=== PATIENT | male | born 1970 | race Caucasian/White ===

== ENCOUNTER → 2024-08-31 08:10 | Outpatient (CLI) | payer OTHER, SELFPAY ==
--- NOTE | 2024-08-31 08:50 | EKG_ITS ---
[address] [address] Test Date: 2024-08-31 Pat Name: Marshall Styles Department: [facility] Room: Gender: Male Director Of Sports Medicine: HELGA : 1970 Requested By: Order Number: [id number] Reading MD: Julio Cesar Rousseau Measurements Intervals [place] Rate: 45 P: 60 [place]: 182 QRS: 3 QRSD: 106 T: 40 QT: 442 QTc: 382 Interpretive Statements Sinus bradycardia Possible Left atrial enlargement Incomplete right bundle branch block Electronically Signed On 09-02-2024 15:51:00 PDT by Julio Cesar Rousseau
[2024-08-31 08:52] LABS: Add Manual Diff / Slide Review NO; Basophils Absolute Auto 100 /uL (0-100); Basophils Percent Auto 1.1 % (0-2); Eosinophils Absolute Auto 200 /uL (0-450); Eosinophils Percent Auto 2.3 % (2-4); Hematocrit 45.1 % (41-53); Hemoglobin 15.6 g/dL (13.5-17.5); Lymphocytes Absolute Auto 1400 /uL (1100-4500); Lymphocytes Percent Auto 21.8 % (25-40); Mean Corpuscular HGB Conc 34.7 % (30-36); Mean Corpuscular Hemoglobin 32.7 PG (26-34); Mean Corpuscular Volume 94.3 fL (80-100); Monocytes Absolute Auto 500 /uL (0-900); Neutrophils Absolute Auto 4400 /uL (1500-7000); Neutrophils Percent Auto 66.8 % (50-75); Platelet Count 286 X10^3/uL (150-400); Red Blood Cell Count 4.78 X10^6/uL (4.5-5.9); Red Cell Distribution Width 13.1 % (11.6-14.8); White Blood Cell Count 6.6 X10^3/uL (4.5-11.0)
[2024-08-31 09:06] LABS: Hemoglobin A1C% w Est Avg Glu 5.2 % (4.0-6.0)
[2024-08-31 09:50] LABS: Alanine Aminotransferase 32 IU/L (<50); Albumin 4.2 g/dL (3.5-5.0); Albumin Globulin Ratio 1.8 (1.0-2.8); Alkaline Phosphatase 55 U/L (38-126); Aspartate Aminotransferase 25 IU/L (17-59); Bilirubin Total 0.9 mg/dL (0.2-1.3); Blood Urea Nitrogen 17 mg/dL (9-20); Calcium 9.3 mg/dL (8.4-10.2); Carbon Dioxide 27 mmol/L (22-32); Chloride 104 mmol/L (98-107); Cholesterol 207 mg/dL (140-199); Estimated Glomerular Filt Rate > 60 mL/min (>60); Globulin 2.3 g/dL (1.7-4.1); Glucose 103 mg/dL (70-100); HDL Cholesterol 52 mg/dL (40-60); HEMOLYSIS < 15 (0-50); LDL Cholesterol Calculated 125 mg/dL (<100); Potassium 4.3 mmol/L (3.4-5.1); Sodium 138 mmol/L (137-145); Total Protein 6.5 g/dL (6.3-8.2); Triglycerides 152 mg/dL (35-150)
[2024-08-31 10:49] LABS: Prostate Specific Antigen Scrn < 0.064 ng/mL (0.1-4.0)
[2024-09-02 17:01] LABS: HIV 1 & 2 Ab/Ag 4th Gen Combo NEGATIVE (NEGATIVE); Hep C Virus Ab w/Reflex Quant NEGATIVE s/c (NEGATIVE)
== END ==
PROVIDERS: PCP Family Medicine; Referring Provider Family Medicine; Visit Provider Family Medicine
DX: Z13.228 Encounter for screening for other metabolic disorders (principal); Z11.4 Encounter for screening for human immunodeficiency virus [HIV]; Z13.0 Encounter for screening for diseases of the blood and blood-forming organs and certain disorders involving the immune mechanism; Z11.59 Encounter for screening for other viral diseases; Z13.220 Encounter for screening for lipoid disorders; Z13.1 Encounter for screening for diabetes mellitus; Z12.5 Encounter for screening for malignant neoplasm of prostate; Z85.46 Personal history of malignant neoplasm of prostate
CPT/HCPCS: 36415; 80053; 80061; 83036; 85025; 86803; 87389; 93005; G0103

== ENCOUNTER → 2024-09-29 07:50 | Outpatient (CLI) | payer OTHER, SELFPAY ==
--- NOTE | 2024-09-29 07:51 | DI.ECHO.S_ITS ---
[facility] : : [address] : : [place] : : [id number] : : Phone: [phone] Echocardiogram Report + + :Name: MILAD, NICHOLE Boo Study Date: 09/29/2024 Height: 71 in : :[facility] ReadingLocation: Weight: 185 lb : : Gender: Male BSA: 2.0 m2 : :: 1970 Age: 54 yrs BP: 131/87 mmHg: :Reason For Study: SYNCOPE, LBBB ON EKG : :Ordering Physician: DANIAL, : :CAMRON Boo Performed By: Camron Regan : :Referring: CAMRON BARROW : + + Interpretation Summary The left ventricle is normal in size. Left ventricular systolic function appears normal without focal wall motion abnormalities. The ejection fraction is estimated to be 55-60%. The right ventricle is mildly dilated. The right ventricular systolic function is normal. The left atrial size is normal. There is no significant valvular heart disease. The aortic root is borderline dilated. The ascending aorta is mildly enlarged. Procedure: A two-dimensional transthoracic echocardiogram with color flow and Doppler was performed. The study quality was technically good. There is no prior echocardiogram noted for this patient. The patient was in normal sinus rhythm during the exam. Left Ventricle: The left ventricle is normal in size. There is normal left ventricular wall thickness. There is no ventricular septal defect visualized. Left ventricular systolic function appears normal without focal wall motion abnormalities. The ejection fraction is estimated to be 55-60%. Diastolic parameters suggest probable normal left ventricular diastolic function and normal filling pressures. Right Ventricle: The right ventricle is mildly dilated. The right ventricular systolic function is normal. Atria: The left atrial size is normal. The right atrium is mildly dilated. There is no Doppler evidence for an atrial septal defect. Mitral Valve: The mitral valve is normal in structure and function. There is trace mitral regurgitation. Aortic Valve: The aortic valve is trileaflet. The aortic valve opens well. No aortic regurgitation is present. Tricuspid Valve: The tricuspid valve is normal in structure and function. No tricuspid regurgitation. Pulmonic Valve: The pulmonic valve is normal in structure and function. There is no pulmonic valvular regurgitation. There is no significant valvular heart disease. Great Vessels: The aortic root is borderline dilated. The ascending aorta is mildly enlarged. The pulmonary artery is normal size. The IVC is of normal diameter and collapses greater than 50% with a sniff. This suggests a low right atrial pressure of 3 mm Hg. Pericardium/ Pleura There is no pericardial effusion. There is no pleural effusion. MMode/2D Measurements & Calculations LVIDd: 4.9 cm LVOT diam: 2.4 cm LVIDs: 2.9 cm Ao root diam: 3.6 cm FS: 41.1 % asc Aorta Diam: 4.0 cm EPSS: 0.35 cm Ao Arch Diam (Prox Trans): 2.1 cm IVSd: 0.93 cm LVPWd: 0.87 cm LV beatty. diameter/BSA (cm/m^2): 2.4 LV sys. diameter/BSA (cm/m^2): 1.4 LA A2 area: 18.3 cm2 RA long axis: 5.5 cm LA A4 area: 18.5 cm2 RA area: 19.2 cm2 LA length (vol): 5.4 cm RA vol: 56.6 ml LA vol: 52.9 ml RA : 27.7 ml/m2 LA vol index: 25.9 ml/m2 IVC diam: 2.0 cm RVD1 (basal): 4.2 cm RVD2 (mid): 3.7 cm TAPSE: 2.3 cm Doppler Measurements & Calculations Ao V2 max: 133.9 cm/sec LVOT Max Alejandro: 118.1 cm/sec Ao V2 mean: 83.4 cm/sec LV V1 max P.6 mmHg Ao max P.2 mmHg LV V1 VTI: 23.9 cm Ao mean P.3 mmHg CORAL(I,D): 4.0 cm2 Ao V2 VTI: 26.7 cm CORAL(V,D): 3.9 cm2 sev ratio: 0.90 CORAL indexed to BSA (cm^2/m^2): 2.0 MV E max alejandro: 64.1 cm/sec PA V2 max: 94.5 cm/sec MV A max alejandro: 40.8 cm/sec PA V2 mean: 64.0 cm/sec MV E/A: 1.6 PA mean P.8 mmHg Med Peak E' Alejandro: 8.3 cm/sec PA pr(Accel): 32.8 mmHg E/E' med: 7.8 Lat Peak E' Alejandro: 11.3 cm/sec E/E' lat: 5.7 E/e' average: 6.7 MV dec time: 0.21 sec SV(LVOT): 106.5 ml Reading Physician:09:33 AM
== END ==
PROVIDERS: PCP Family Medicine; Referring Provider Family Medicine; Visit Provider Family Medicine
DX: I77.89 Other specified disorders of arteries and arterioles (principal); I44.7 Left bundle-branch block, unspecified; Z87.898 Personal history of other specified conditions
CPT/HCPCS: 93306

== ENCOUNTER 2024-11-15 07:10 | Day surgery (SDC) | payer OTHER, SELFPAY ==
[2024-11-15 07:24] VITALS: BP 131/77; PULSE 70; RESP 17; TEMP 36.2; O2SAT 96
[2024-11-15] MEDS: SODIUM CHLORIDE 0.9% 1,000 ML 42 ML IV (07:53)
--- NOTE | 2024-11-15 08:30 | P.OP.COLON_ITS ---
Operative Date/Time/Diagnoses Date of procedure: 11/15/24 Time of procedure: 09:02 Procedure & Clinicians Surgeon: Radu Anglin Procedure Notes Procedure in detail: OPERATIVE / PROCEDURE NOTE Marshall Styles, 1970, 54,Male,CSN: [id number] 11/15/24 PREOPERATIVE DIAGNOSIS: Need for screening colonoscopy.. POSTOPERATIVE DIAGNOSIS: Same + Per the colonoscopy to the cecum: NORMAL COLON, f/u colonoscopy in 10 years. PROCEDURE DONE: Colonoscopy to the cecum. ANESTHESIA: MAC per Anesthesia. COMPLICATIONS: None. SPECIMENS: None. ESTIMATED BLOOD LOSS: NONE. CONDITION: Stable to the PACU. OPERATIVE DESCRIPTION: After proper informed consent was signed by the patient knowing all the risks, benefits, and potential complications and possible alternatives of the procedure, the patient was appropriately identified. Marshall Styles underwent a bowel prep that was very efficient yesterday, and the colon was clean. After institution of sedation on his left lateral decubitus position, a rectal exam was performed. Normal rectal and anal tone was found. The Olympus colonoscope was placed into his anus and under direct visualization was advanced from the rectum to the rectosigmoid to the sigmoid to the left colon, splenic flexure, transverse colon, hepatic flexure, ascending colon, and all the way to the cecum. Circumferential visualization of the mucosa was possible. The appendix aperture was noted. The ileocecal valve was noted. No large tumors. No ulcers. No inflammatory bowel disease changes were noted. No diverticulae noted in the sigmoid colon. In the rectum, the scope was retroflexed, and no internal hemorrhoids were noted. NORMAL COLON, f/u colonoscopy in 10 years. The scope was straightened back again. The colon was decompressed, and the scope was retracted out uneventfully. The patient tolerated the procedure well without any complications, was sent to the PACU in stable condition. RECOMMENDATIONS: Continue high-fiber diet - 30-40 gm/day with daily fiber supplementation. NORMAL COLON, f/u colonoscopy in 10 years.
--- NOTE | 2024-11-15 08:30 | P.HP_ITS ---
History of Present Illness History of Present Illness Date Patient Seen: 11/15/24 Time Patient Seen: 08:34 Chief complaint: [facility] Medical History (Updated 11/15/24 @ 08:36 by Radu Anglin MD) History of prostate cancer Surgical History (Updated 11/17/23 @ 13:32 by Camron Guerra MD) H/O prostatectomy (~2017) H/O vasectomy (~2009) H/O left inguinal hernia repair (~2011) Family History (Updated 11/17/23 @ 13:59 by Camron Guerra MD) Father Cancer Mother Alzheimer's dementia Social History marital status: household members: spouse education level: college occupational status: employed Smoking Status: Never smoker alcohol intake: current substance use type: does not use during the past year weight has: remained stable well-balanced diet: daily or most days daily servings fruits/ve or more times/day eating out: rarely or never Type(s) of exercise: walking, bicycling and additional (hiking) frequency: 3-4 times per week duration: 15-30 minutes/day Meds Home Medications and Allergies Home Medications Medication Instructions Recorded Confirmed Type albuterol sulfate 90 mcg/actuation 2 puff inhalation Q4-6H PRN 11/17/23 11/15/24 History aerosol inhaler Allergic Symptoms cetirizine 10 mg capsule (Zyrtec) 10 mg PO DAILY allergies 11/17/23 11/15/24 History fluticasone 100 mcg-salmeterol 50 1 ea PO BID #60 ea 08/12/24 11/15/24 Rx mcg/dose blistr powdr for inhalation (Wixela Inhub) meloxicam 7.5 mg tablet 7.5 mg PO DAILY PRN for joint pain 09/24/24 11/15/24 Rx #60 tabs Allergies Allergy/AdvReac Type Severity Reaction Status Date / Time No Known Drug Allergies Allergy Verified 11/15/24 07:22 Review of Systems Review of Systems ROS: Yes All systems reviewed with the patient and are negative except as otherwise documented Exam Vital Signs (past 8 hours): - 11/15/24 07:24 Temperature 97.1 F L Pulse Rate 70 Respiratory Rate 17 Blood Pressure 131/77 Pulse Oximetry 96 Oxygen Delivery Method Room Air Oxygen Delivery Method Room Air Narrative Exam Narrative: Normal abdominal exam. Assessment & Plan Assessment and plan (1) Encounter for screening colonoscopy: Problem details: No high risk for colon cancer, NO symptoms at all, did a good bowel prep yesterday, and will colonoscope him NOW. Status: Acute Time-Based Coding :: [TOTAL MINUTES] spent with patient and on the chart (including review of chart, obtaining history, exam, reviewing outside data, placing orders, documenting exam and treatment plan, and counseling patient) on [DATE].
[2024-11-15 09:06] VITALS: BP 119/74; PULSE 77; RESP 16; O2SAT 95
[2024-11-15 09:17] VITALS: BP 106/61; PULSE 61; RESP 12; TEMP 36.4; O2SAT 95
[2024-11-15 09:21] VITALS: BP 104/62; PULSE 57; RESP 10; O2SAT 97
[2024-11-15 09:25] VITALS: BP 132/89; PULSE 73; RESP 21; TEMP 36.7; O2SAT 97
== END 2024-11-15 09:41 | disposition home or self-care (01) ==
PROVIDERS: PCP Family Medicine; Referring Provider Surgery; Visit Provider Surgery
PROC: 0DJD8ZZ Inspection of Lower Intestinal Tract, Via Natural or Artificial Opening Endoscopic (ICD-10-PCS; CPT 45378; principal; 2024-11-15 08:15)
DX: Z12.11 Encounter for screening for malignant neoplasm of colon (principal)
CPT/HCPCS: 45378; J2704

== ENCOUNTER 2025-11-06 10:35 | Emergency (ER) | payer OTHER, SELFPAY ==
[2025-11-06] VITALS (13 sets, daily range): BP systolic 109–155; BP diastolic 68–85; PULSE 53–74; RESP 16; TEMP 36.8; O2SAT 93–97; BMI 25.7
--- NOTE | 2025-11-06 10:59 | ED.GENADULT ---
HPI - General Adult General Chief complaint: Urogenital-Male Stated complaint: Urinating blood. Time Seen by Provider: 11/06/25 10:40 History of Present Illness HPI narrative: 55-year-old gentleman with a history of prostate cancer in 2018 post prostatectomy we will follow up PSAs have been low presents with 3 days of intermittent gross hematuria. He had right flank pain with hematuria 3 nights ago, no dysuria no frequency another episode of hematuria and this morning had very dark grossly bloody stool again. He is not having difficulty with voiding and feels that he is completely emptying his bladder. No fevers, chills aside from the episode of flank pain initially this has not recurred. He is not currently in pain Related Data Home Medications ?Medication ?Instructions ?Recorded ?Confirmed albuterol sulfate 90 mcg/actuation 2 puff inhalation Q4-6H PRN 11/17/23 08/01/25 aerosol inhaler Allergic Symptoms cetirizine 10 mg capsule (Zyrtec) 10 mg PO DAILY allergies 11/17/23 08/01/25 Previous Rx's ?Medication ?Instructions ?Recorded meloxicam 7.5 mg tablet 7.5 mg PO DAILY PRN for joint pain 08/01/25 #60 tabs fluticasone 100 mcg-salmeterol 50 1 ea PO BID #60 ea 09/03/25 mcg/dose blistr powdr for inhalation (Wixela Inhub) Allergies Allergy/AdvReac Type Severity Reaction Status Date / Time No Known Drug Allergies Allergy Verified 08/01/25 08:54 Review of Systems Review of Systems Narrative: Pertinent positive and negative findings as per HPI Patient History Medical History History of prostate cancer Surgical History H/O prostatectomy (~2017) H/O vasectomy (~2009) H/O left inguinal hernia repair (~2011) Family History Father Cancer Mother Alzheimer's dementia Social History marital status: household members: spouse education level: college occupational status: employed alcohol intake: current substance use type: does not use during the past year weight has: remained stable well-balanced diet: daily or most days daily servings fruits/ve or more times/day eating out: rarely or never Type(s) of exercise: walking, bicycling and additional (hiking) frequency: 3-4 times per week duration: 15-30 minutes/day Exam Initial Vital Signs Initial Vital Signs: Vital Signs Temperature 98.3 F 11/06/25 10:50 Pulse Rate 74 11/06/25 10:50 Respiratory Rate 16 11/06/25 10:50 Blood Pressure 155/83 H 11/06/25 10:50 Pulse Oximetry 97 11/06/25 10:50 Oxygen Delivery Method Room Air 11/06/25 10:50 General: Alert appropriate in no acute distress Respiratory: Able to speak in full sentences, no obvious respiratory distress Abdomen: Nontender, no flank pain Skin: No obvious rashes, warm and dry Neurologic: Grossly intact no obvious asymmetries or abnormalities Psych: appropriate insight and affect, cooperative Course Orders Ordered: ED Orders 11/06/25 10:59 CT abdomen pelvis w con Stat 11/06/25 11:00 Urinalysis and Microscopic Stat 11/06/25 11:05 Complete Blood Count AUTO DIFF Stat Comprehensive Metabolic Panel Stat Vital Signs Vital signs: Vital Signs - 8 hr 11/06/25 10:50 11/06/25 11:08 11/06/25 11:11 Temperature 98.3 F Pulse Rate 74 64 Respiratory Rate 16 Blood Pressure 155/83 H 120/71 Pulse Oximetry 97 96 Oxygen Delivery Method Room Air 11/06/25 11:11 11/06/25 11:30 11/06/25 11:30 Temperature Pulse Rate 62 64 Respiratory Rate Blood Pressure 109/68 Pulse Oximetry 93 94 Oxygen Delivery Method 11/06/25 12:02 11/06/25 12:30 11/06/25 12:38 Temperature Pulse Rate 62 56 L 63 Respiratory Rate Blood Pressure Pulse Oximetry 94 94 96 Oxygen Delivery Method 11/06/25 12:38 11/06/25 13:00 11/06/25 13:00 Temperature Pulse Rate 56 L Respiratory Rate Blood Pressure 122/79 112/68 Pulse Oximetry 95 Oxygen Delivery Method 11/06/25 13:30 11/06/25 13:30 11/06/25 14:00 Temperature Pulse Rate 59 L Respiratory Rate Blood Pressure 112/71 117/76 Pulse Oximetry 95 Oxygen Delivery Method 11/06/25 14:00 11/06/25 14:30 11/06/25 14:30 Temperature Pulse Rate 57 L 53 L Respiratory Rate Blood Pressure 132/76 Pulse Oximetry 96 97 Oxygen Delivery Method 11/06/25 15:00 11/06/25 15:00 11/06/25 15:30 Temperature Pulse Rate 72 69 Respiratory Rate Blood Pressure 132/81 Pulse Oximetry 95 96 Oxygen Delivery Method 11/06/25 15:30 Temperature Pulse Rate Respiratory Rate Blood Pressure 131/85 Pulse Oximetry Oxygen Delivery Method Medical Decision Making Lab Data 11/06/25 11:05 11/06/25 11:05 Labs: Lab Results 11/06/25 11/06/25 Range/Units 11:00 11:05 WBC 6.0 (4.5-11.0) X10^3/uL RBC 4.83 (4.5-5.9) X10^6/uL Hgb 15.7 (13.5-17.5) g/dL Hct 45.3 (41-53) % MCV 93.8 (80-100) fL MCH 32.6 (26-34) PG MCHC 34.7 (30-36) % RDW 12.6 (11.6-14.8) % Plt Count 270 (150-400) X10^3/uL Neut % (Auto) 66.9 (50-75) % Lymph % (Auto) 19.0 L (25-40) % [place] % (Auto) 8.8 (3-14) % Eos % (Auto) 2.3 (2-4) % Baso % (Auto) 3.0 H (0-2) % Neut # (Auto) 4000 (4885-6185) /uL Lymph # (Auto) 1100 (6240-4081) /uL [place] # (Auto) 500 (0-900) /uL Eos # (Auto) 100 (0-450) /uL Baso # (Auto) 200 H (0-100) /uL Sodium 137 (137-145) mmol/L Potassium 4.2 (3.4-5.1) mmol/L Chloride 107 (98-107) mmol/L Carbon Dioxide 24 (22-32) mmol/L BUN 17 (9-20) mg/dL Creatinine 1.06 (0.66-1.25) mg/dL Estimated GFR > 60 (>60) mL/min BUN/Creatinine Ratio 16.0 (6-22) Glucose 125 H (70-99) mg/dL Calcium 9.1 (8.4-10.2) mg/dL Total Bilirubin 0.9 (0.2-1.3) mg/dL AST 27 (17-59) IU/L ALT 32 (<50) IU/L Alkaline Phosphatase 51 (38-126) U/L Total Protein 7.1 (6.3-8.2) g/dL Albumin 4.5 (3.5-5.0) g/dL Globulin 2.6 (1.7-4.1) g/dL Albumin/Globulin Ratio 1.7 (1.0-2.8) Urine Color Yellow Urine Appearance Clear Urine pH 6.0 (4.5-8.0) Ur Specific [place] <=1.005 (1.000-1.035) Urine Protein Negative (Negative) Urine Glucose (UA) Negative (Negative) g/dL Urine Ketones Negative (NEGATIVE) Urine Occult Blood Negative (Negative) Urine Nitrate Negative (Negative) Urine Bilirubin Negative (NEGATIVE) Urine Urobilinogen 0.2 (0.2) E.U./dL Ur Leukocyte Esterase Negative (NEGATIVE) Urine RBC None seen (0-5/HPF) Urine WBC 1-5/hpf (0-5/HPF) Ur Squamous Epith Cells None seen (0-5/HPF) Urine Bacteria None seen (None) Ur Culture Indicated? Cult not indicated Vol Urine Centrifuged 10ml (spun) Urine Dip Bedside Urine Glucose Negative Bedside Urine Bilirubin - Negative Bedside Urine Ketone - Negative Urine Specific [place] 1.005 Bedside Urine Occult Blood - Negative Bedside Urine pH 6.0 Bedside Urine Protein - Negative Bedside Urine Urobilinogen - Negative Bedside Urine Nitrite - Negative Bedside Urine Leukocytes - Negative Esterase Point of care testing: Urine Dip Bedside Urine Glucose Negative Bedside Urine Bilirubin - Negative Bedside Urine Ketone - Negative Urine Specific [place] 1.005 Bedside Urine Occult Blood - Negative Bedside Urine pH 6.0 Bedside Urine Protein - Negative Bedside Urine Urobilinogen - Negative Bedside Urine Nitrite - Negative Bedside Urine Leukocytes - Negative Esterase Imaging Data CT scan - abdomen/pelvis: Radiologist's Impression: PROCEDURE: CT ABDOMEN PELVIS W CON INDICATIONS: gross hematuria, flank pain TECHNIQUE: After the administration of intravenous contrast, axial sections acquired from the lung bases to the pubic symphysis. Coronal and sagittal reformats were performed. For radiation dose reduction, the following was used: automated exposure control, adjustment of mA and/or kV according to patient size. COMPARISON: None. FINDINGS: Image quality: Diagnostic. Lower Chest: No significant findings. ABDOMEN: Liver: No solid mass. Gallbladder: No radiopaque gallstones or wall thickening. Biliary ducts: No biliary dilation. Pancreas: No ductal dilation. Spleen: Size is within normal limits. Adrenal Glands: No adrenal nodules. Kidneys and Ureters: There is a heterogeneous enhancing mass in the right kidney measuring 4.0 x 4.1 x 5.0 cm (2/63, 4/54). No significant hydronephrosis Stomach and Bowel: Normal colonic caliber, without significant wall thickening. Peritoneum: No abnormal intraperitoneal fluid. No free air. Ventral Wall: No significant ventral hernia. Abdominal Nodes: No retroperitoneal or mesenteric adenopathy by size criteria. Vessels: Aorta and inferior vena cava are normal in size. PELVIS: Pelvic Organs: Unremarkable. Bladder: No bladder wall thickening, accounting for underdistention. Pelvic Nodes: No enlarged lymph nodes. Miscellaneous: No inguinal hernias are seen. Bones: No aggressive osseous abnormality. IMPRESSION: Heterogeneous lead enhancing right 5 cm mass concerning for renal cell carcinoma. No abdominal adenopathy. Recommend urology consultation. Approved by: Kasia Flores M.D.,Ph.D. on 11/06/2025 at 13:32 MDM Narrative Medical decision making narrative: CC: Intermittent hematuria and flank pain for 3 days Complicating co-morbidities: Prostate cancer 2018 Data collected from: patient, Differential considered: Kidney stone, bladder infection, bladder cancer, renal cancer recurrent prostate cancer Exam documented above, pertinent findings include: No abdominal pain or flank pain at this time Lab Test results independently reviewed as above. Pertinent findings: CBC is reassuring Chemistries are reassuring including normal renal function Imaging studies independently reviewed: right 5 cm mass concerning for renal cell carcinoma. No abdominal adenopathy. Discussion: The right 5 cm renal mass with concerns for renal cancer as a source for his intermittent episodes of painless acute hematuria are discussed with the patient. Explained the need for rapid urologic follow up. There was no evidence of urine or kidney infection, recurrent prostate abnormalities or alternate explanations. Patient expresses understanding understands need for outpatient follow up for further biopsy, diagnosis and treatment. He is safe for discharge Discharge Plan Departure Patient Disposition: Home Clinical Impression: Mass of right kidney, Gross hematuria Instructions: DI for Kidney Cancer Activity Restrictions/Additional Instructions: Thank you for coming in today There was no evidence of bladder infection, kidney stone or kidney infection. Your CT scan shows a 5 cm mass on your right kidney that is concerning for a kidney cancer. You need to get into see a urologist quickly to help with definitive diagnosis and treatment. Please contact [facility], Dr. Orellana, If you have any difficulty getting into see Dr Orellana, please contact your primary care provider. If you find that you are getting worse or develop any new symptoms, please feel free to return to the emergency department for further evaluation. Prescriptions: No Action Zyrtec 10 mg capsule 10 mg PO DAILY albuterol sulfate 90 mcg/actuation HFA aerosol inhaler 2 puff inhalation Q4-6H PRN (Reason: Allergic Symptoms) meloxicam 7.5 mg tablet 7.5 mg PO DAILY PRN (Reason: for joint pain) Qty: 60 2RF fluticasone propion-salmeterol [Wixela Inhub] 100-50 mcg/dose blister with device 1 ea PO BID Qty: 60 5RF Referrals: Camron Guerra MD [Primary Care Provider, Family Practice] Stand Alone Forms: Patient Portal/API
[2025-11-06 11:23] LABS: Appearance Urine UA CLEAR; Bilirubin Urine UA NEGATIVE (NEGATIVE); Color Urine UA YELLOW; Glucose Urine UA NEGATIVE (Negative); Ketones Urine UA NEGATIVE (NEGATIVE); Leukocyte Esterase Urine UA NEGATIVE (NEGATIVE); Nitrite Urine UA NEGATIVE (Negative); Occult Blood Urine UA NEGATIVE (Negative); Protein Urine UA NEGATIVE (Negative); Specific Gravity Urine UA <=1.005 (1.000-1.035); Urobilinogen Urine UA 0.2 E.U./dL (0.2); pH Urine UA 6.0 (4.5-8.0)
[2025-11-06 11:35] LABS: Alanine Aminotransferase 32 IU/L (<50); Albumin 4.5 g/dL (3.5-5.0); Albumin Globulin Ratio 1.7 (1.0-2.8); Alkaline Phosphatase 51 U/L (38-126); Blood Urea Nitrogen 17 mg/dL (9-20); Calcium 9.1 mg/dL (8.4-10.2); Carbon Dioxide 24 mmol/L (22-32); Chloride 107 mmol/L (98-107); Estimated Glomerular Filt Rate > 60 mL/min (>60); Globulin 2.6 g/dL (1.7-4.1); Glucose 125 mg/dL (70-99); HEMOLYSIS < 15 (0-50); Potassium 4.2 mmol/L (3.4-5.1); Sodium 137 mmol/L (137-145); Total Protein 7.1 g/dL (6.3-8.2)
[2025-11-06 11:57] LABS: Culture Indicated Urine Cult Not Indicated
[2025-11-06 12:05] LABS: Add Manual Diff / Slide Review NO; Hematocrit 45.3 % (41-53); Hemoglobin 15.7 g/dL (13.5-17.5); Lymphocytes Absolute Auto 1100 /uL (1100-4500); Mean Corpuscular HGB Conc 34.7 % (30-36); Mean Corpuscular Hemoglobin 32.6 PG (26-34); Mean Corpuscular Volume 93.8 fL (80-100); Platelet Count 270 X10^3/uL (150-400)
== END 2025-11-06 16:12 | disposition home or self-care (01) ==
PROVIDERS: Emergency Provider Emergency Medicine; PCP Family Medicine
DX: N28.89 Other specified disorders of kidney and ureter (principal); R31.0 Gross hematuria; R10.A1 Flank pain, right side; R39.198 Other difficulties with micturition
CPT/HCPCS: 36415; 74177; 80053; 81001; 81003; 85025; 99283; 99284; Q9967

== ENCOUNTER → 2025-11-10 12:29 | Outpatient (CLI) | payer OTHER, SELFPAY ==
--- NOTE | 2025-11-10 12:30 | DI.CT.S_ITS ---
PROCEDURE: CT CHEST WO CON INDICATIONS: chest surveillence. TECHNIQUE: Noncontrast 5 mm thick sections acquired from the pulmonary apices to the posterior costophrenic angles. 1 mm lung window, 5 mm thick coronal and sagittal and 7 mm axial MIP reformats were then acquired. For radiation dose reduction, the following was used: automated exposure control, adjustment of mA and/or kV according to patient size. COMPARISON: None. FINDINGS: Image quality: Diagnostic. Lower Neck: No enlarged lymph nodes. Thyroid: No thyroid nodules which require sonographic follow up, per consensus guidelines. Axillae: No enlarged lymph nodes. Chest Wall: Unremarkable. Bones: Unremarkable. Lungs and Pleura: No pneumothorax or pleural effusions. No consolidation or suspicious nodules. Heart: Heart size is normal. No pericardial effusion. Thoracic Vessels: The aorta and pulmonary arteries demonstrate normal size. Mediastinum and Melly: No enlarged lymph nodes. Esophagus: No wall thickening. No hiatal hernia. Upper Abdomen: Visualized upper abdomen solid organs and bowel loops appear normal. IMPRESSION: No signs of metastatic disease in the chest. Approved by: Josh Snider M.D. on 11/10/2025 at 13:10
== END ==
PROVIDERS: PCP Family Medicine; Referring Provider Urology; Visit Provider Urology
DX: N28.89 Other specified disorders of kidney and ureter (principal)
CPT/HCPCS: 71250